=== PATIENT | female | born 1975 ===

== ENCOUNTER 2019-09-21 10:15 | Inpatient (IN) | payer OTHER ==
[~2019-09-21] VITALS: Ht 162.6 cm; Wt 88.5 kg
== END 2019-09-30 08:21 | disposition home or self-care (01) | DRG 743 ==
LOC: OB/GYN 09-27 05:00 → O/R 09-27 05:00 → SURH 09-27 07:00 → O/R 09-27 10:15 → SURH 09-27 10:15 → OB/GYN 09-27 11:48
PROVIDERS: ADMIT Obstetrics & Gynecology Gynecologic Oncology
PROC: 0UT70ZZ Resection of Bilateral Fallopian Tubes, Open Approach (ICD-10-PCS; 2019-09-27)
PROC: 0UT10ZZ Resection of Left Ovary, Open Approach (ICD-10-PCS; 2019-09-27)
PROC: 0UT90ZZ Resection of Uterus, Open Approach (ICD-10-PCS; principal; 2019-09-27 07:00)
DX: D25.1 Intramural leiomyoma of uterus (principal); N72 Inflammatory disease of cervix uteri; N80.1 Endometriosis of ovary